=== PATIENT | male | born 1990 ===

== ENCOUNTER 2023-01-22 11:07 | Emergency (ER) | payer OTHER ==
[~2023-01-22] VITALS: Ht 182.9 cm; Wt 59.6 kg
[2023-01-22 11:08] VITALS: BP 136/84; PULSE 63; RESP 16; TEMP 98.2; O2SAT 99
== END 2023-01-22 15:56 | disposition left against medical advice (07) ==
LOC: ER 11:07
DX: Z76.0 Encounter for issue of repeat prescription (principal); Z53.21 Procedure and treatment not carried out due to patient leaving prior to being seen by health care provider
CPT/HCPCS: 99281